=== PATIENT | male | born 1985 | race Caucasian/White ===

== ENCOUNTER 2023-09-21 08:15 | Outpatient (CLI) | payer OTHER, SELFPAY ==
[2023-09-21 08:54] LABS: Hematocrit 47.3 % (42.0-52.0); Hemoglobin 16.2 g/dL (14.0-18.0); Mean Corpuscular HGB Conc 34.2 g/dl (32-36); Mean Corpuscular Hemoglobin 29.7 pg (26-34); Mean Corpuscular Volume 86.8 fl (80-100); Mean Platelet Volume 10.3 fl (7.4-10.4); Platelet Count Result 247 k/mm3 (150-375); Red Blood Count 5.45 M/mm3 (4.6-6.20); Red Cell Distribution Width 12.1 % (11.5-14.5); White Blood Count 7.2 K/mm3 (4.5-10.0)
[2023-09-21 09:03] LABS: Hemoglobin A1C 6.1 % (<5.7)
[2023-09-21 09:07] LABS: Alanine Aminotransferase 102 U/L (6-50); Albumin Level 4.6 g/dL (3.5-5.1); Alkaline Phosphatase 53 U/L (38-126); Anion Gap 7 mmol/L (4-12); Aspartate Amino Transferase 61 U/L (17-59); Bilirubin,Total 0.7 mg/dL (0.2-1.3); Blood Urea Nitrogen 15 mg/dL (9-20); Calcium 9.4 mg/dL (8.4-10.2); Carbon Dioxide 26 mmol/L (22-30); Chloride 104 mmol/L (98-107); Cholesterol 218 mg/dL (0-200); Estimated Glomerular Filt Rate > 60; Glucose 135 mg/dL (65-110); HDL Direct 37 mg/dL; Potassium 3.7 mmol/L (3.4-5.0); Sodium 137 mmol/L (137-145); Triglycerides 270 mg/dL (<150); Uric Acid 8.6 mg/dL (3.5-8.5)
[2023-09-21 09:18] LABS: LDL Cholesterol Direct 156 mg/dL
[2023-09-21 09:28] LABS: Free T4 Free Thyroxine 1.21 ng/mL (0.78-2.19)
[2023-09-21 09:32] LABS: Creatinine Urine 57.7 mg/dL
[2023-09-21 09:43] LABS: MALB Creatinine Ratio < 10.4 mg/g (0-30); Microalbumin Urine Random < 6.0 mg/L (0-16.7)
== END 2023-09-21 08:16 | disposition home or self-care (01) ==
LOC: ANHLAB 08:23
PROVIDERS: PCP Emergency Medicine; Visit Provider Emergency Medicine
DX: M10.9 Gout, unspecified (principal); I10 Essential (primary) hypertension; E78.5 Hyperlipidemia, unspecified; Z00.00 Encounter for general adult medical examination without abnormal findings
CPT/HCPCS: 36415; 80053; 80061; 82043; 83036; 84439; 84443; 84550; 85027